=== PATIENT | male | born 1960 | race Caucasian/White ===

== ENCOUNTER 2019-03-11 07:33 | Emergency (ER) | payer BC | END 2019-03-11 08:43 | disposition home or self-care (01) | LOC: JER 07:33 → JERFT 08:43 ==

== ENCOUNTER 2021-10-17 18:10 | Emergency (ER) | payer BC ==
[2021-10-17 18:23] VITALS: BP 129/79; PULSE 75; TEMP 98; BMI 23.3
[2021-10-17] MEDS ORDERED: ONDANSETRON 4 MG TABLET PO ONE (18:53)
[2021-10-17] MEDS ORDERED: FAMOTIDINE 20 MG TABLET PO ONE (18:53)
[2021-10-17] MEDS ORDERED: MAG HYDROX/AL HYDROX/SIMETH -MYLANTA- ORAL SUSPENSION PO ONE (18:53)
[2021-10-17] MEDS ORDERED: MAG HYDROX/AL HYDROX/SIMETH 30 ML UNIT-DOSE CUP ONE (18:56)
[2021-10-17] MEDS ORDERED: ONDANSETRON *ODT* 4 MG TABLET ONE (18:56)
[2021-10-17] MEDS ORDERED: FAMOTIDINE 20 MG TABLET ONE (18:56)
== END 2021-10-17 19:15 | disposition home or self-care (01) ==
LOC: JER 18:10
DX: R10.13 Epigastric pain (principal); R19.7 Diarrhea, unspecified; R11.2 Nausea with vomiting, unspecified
CPT/HCPCS: 99283-25

== ENCOUNTER 2023-12-27 07:30 | Emergency (ER) | payer BC ==
[2023-12-27 08:04] VITALS: BMI 24.9
[2023-12-27] MEDS ORDERED: ACETAMINOPHEN INJECTION 100 ML IVPB ONE (08:50)
[2023-12-27 08:51] LABS: BASO % 0.3 % (0-2.0); EOS % 1.5 % (0-4.5); HEMATOCRIT 33.8 % (35.4-49); HEMOGLOBIN 11.2 GM/dL (11.7-16.9); LYMPH % 15.7 % (8-40); MCH 27.3 pg (25.7-33.7); MCHC 33.1 g/dl (32.0-35.9); MEAN CELL VOLUME 82.6 fl (80-96); MEAN PLT VOLUME 8.9 fl (7.5-11.1); MONO % 8.8 % (3.8-10.2); NEUT % 73.7 % (42.8-82.8); PLATELET COUNT 124 10^3/uL (134-434); RDW 16.9 % (11.9-15.9); WHITE BLOOD COUNT 6.8 K/mm3 (4.0-10.0)
[2023-12-27 08:57] LABS: INR 1.03 (0.83-1.09); PROTHROMBIN TIME (PATIENT) 11.6 SEC (9.7-13.0)
[2023-12-27] MEDS: ACETAMINOPHEN 1000 MG/100 ML BAG IVPB ONE (08:58)
[2023-12-27 09:00] LABS: ACTIVATED PTT 32.2 SECONDS (25.2-36.5)
[2023-12-27 09:13] LABS: POTASSIUM 4.7 mmol/L (3.5-5.1)
[2023-12-27 09:15] LABS: ALBUMIN 3.8 g/dl (3.4-5.0); BLOOD UREA NITROGEN 19.8 mg/dL (7-18); CALCIUM 8.7 mg/dL (8.5-10.1); MAGNESIUM 1.8 mg/dL (1.8-2.4)
[2023-12-27 09:18] LABS: CREATININE 1.3 mg/dL (0.55-1.3)
[2023-12-27 09:20] LABS: BILIRUBIN,TOTAL 0.5 mg/dL (0.2-1); TOT PROT 6.6 g/dl (6.4-8.2)
[2023-12-27 10:04] LABS: PH,URINE 6.5 (5.0-8.0); URINE APPEARANCE CLEAR; URINE BILIRUBIN NEGATIVE (NEGATIVE); URINE COLOR YELLOW; URINE GLUCOSE (UA) NEGATIVE (NEGATIVE); URINE KETONE NEGATIVE (NEGATIVE); URINE LEUK ESTERASE NEGATIVE (NEGATIVE); URINE NITRITE NEGATIVE (NEGATIVE); URINE PROTEIN NEGATIVE (NEGATIVE); URINE UROBILINOGEN 0.2 mg/dL (0.2-1.0)
[2023-12-27 13:17] VITALS: BP 102/72; PULSE 83; RESP 19; TEMP 98.2
[2023-12-27] MEDS ORDERED: KETOROLAC TROMETHAMINE 15 MG/ML VIAL ONE (13:24)
[2023-12-27] MEDS: KETOROLAC TROMETHAMINE 15 MG/ML VIAL IVPUSH ONE (13:32)
== END 2023-12-27 14:37 | disposition home or self-care (01) ==
LOC: JER 07:30
PROC: 3E033NZ Introduction of Analgesics, Hypnotics, Sedatives into Peripheral Vein, Percutaneous Approach (ICD-10-PCS; principal; 2023-12-27)
PROC: 3E0333Z Introduction of Anti-inflammatory into Peripheral Vein, Percutaneous Approach (ICD-10-PCS; 2023-12-27)
DX: I31.39 Other pericardial effusion (noninflammatory) (principal); R91.1 Solitary pulmonary nodule; R07.9 Chest pain, unspecified; R00.0 Tachycardia, unspecified; M25.512 Pain in left shoulder; Z20.822 Contact with and (suspected) exposure to COVID-19
CPT/HCPCS: 0241U-QW; 36415; 71046-TC-FY; 71275-TC; 80053; 81003; 82962; 83735; 84484; 85025; 85610; 85730; 87086; 93005; 93010; 99285-25; J0131; Q9967